=== PATIENT | female | born 1970 | race African-American/Black ===

== ENCOUNTER 2017-02-20 11:02 | Emergency (ER) | payer OTHER ==
[~2017-02-20] VITALS: Ht 162.6 cm; Wt 88.4 kg
[2017-02-20] MEDS ORDERED: DIPHENHYDRAMINE 50 MG/ML, 1ML ONE (11:38)
[2017-02-20] MEDS ORDERED: MECLIZINE CHEWABLE 25 MG TAB ONE (11:38)
[2017-02-20] MEDS ORDERED: PROCHLORPERAZINE 5 MG/ML, 2ML ONE (11:39)
[2017-02-20] MEDS ORDERED: SODIUM CHLORIDE 0.9% 1,000ML IVBOLUS ONE (12:00)
[2017-02-20] MEDS ORDERED: MECLIZINE CHEWABLE 25 MG TAB PO ONE (12:00)
[2017-02-20] MEDS ORDERED: PROCHLORPERAZINE 5 MG/ML, 2ML IVPush ONE (12:00)
[2017-02-20] MEDS ORDERED: DIPHENHYDRAMINE 50 MG/ML, 1ML IVPush ONE (12:00)
[2017-02-20] MEDS ORDERED: SODIUM CHLORIDE FLUSH 10ML SYR IVF ONE (12:00)
[2017-02-20 12:02] LABS: BLOOD UREA NITROGEN 9 mg/dL (7-18)
[2017-02-20 12:08] LABS: ASPARTATE AMINO TRANSFERASE 12 U/L (15-37)
[2017-02-20 12:11] LABS: IS PT STATUS REG ER OR PRE ER? YES
[2017-02-20 15:45] VITALS: BP 178/98
== END 2017-02-20 16:04 | disposition home or self-care (01) ==
LOC: ED 12:28
DX: R51 Headache (principal); R07.89 Other chest pain; H81.10 Benign paroxysmal vertigo, unspecified ear; J45.909 Unspecified asthma, uncomplicated
CPT/HCPCS: 36415; 70450; 71010; 80053; 81001; 84484; 84703; 85025; 87086; 87147; 93005; 96361; 96374; 96375; 99285; J0780; J1200; J7030

== ENCOUNTER 2018-03-23 06:49 | Emergency (ER) | payer OTHER ==
[~2018-03-23] VITALS: Ht 162.6 cm; Wt 87.5 kg
[2018-03-23 06:51] VITALS: BP 160/95
[2018-03-23] MEDS ORDERED: pro air inhaler (07:09)
== END 2018-03-23 07:28 | disposition home or self-care (01) ==
LOC: ED 07:26
DX: J01.00 Acute maxillary sinusitis, unspecified (principal); J45.909 Unspecified asthma, uncomplicated
CPT/HCPCS: 99283